=== PATIENT | female | born 1955 | race American Indian/Alaskan Native ===

== ENCOUNTER 2018-09-26 22:56 | Emergency (ER) | payer SELFPAY ==
[2018-09-26 23:33] LABS: Hematocrit 39.9 % (30.3-42.9); Hemoglobin 13.6 gm/dl (10.1-14.3); Mean Corpuscular HGB Conc 34 % (30-34); Mean Corpuscular Volume 91 fl (79-97); Platelet Count 382 K/mm3 (140-440); Red Blood Count 4.37 M/mm3 (3.65-5.03); Red Cell Distribution Width 13.9 % (13.2-15.2)
[2018-09-26 23:54] LABS: Calcium 9.6 mg/dL (8.4-10.2)
[2018-09-27] MEDS ORDERED: BENADRYL IV ONE (02:19)
[2018-09-27] MEDS ORDERED: REGLAN IV ONE (02:19)
[2018-09-27] MEDS ORDERED: TORADOL IV ONE (02:20)
--- NOTE | 2018-09-27 02:43 | Cat Scan Report ---
CT HEAD/BRAIN WO CON CLINICAL INDICATION: Female, 62 years of age. headache COMPARISON: None TECHNIQUE: Contiguous axial images were obtained from the vertex through the skull base.This CT exam was perform ed using one or more of the following dose reduction techniques: automated exposure control, adjustme nt of the mA and/or kV according to patient size, or use of iterative reconstruction technique. FINDINGS: No acute intracranial hemorrhage, midline shift, or extra-axial fluid collection. Ventricles and cis terns are normal in size and configuration for the patient's age. Roe white differentiation is main tained. Calvarium is grossly intact. Visualized ocular globes are grossly unremarkable. Benign punc hua calcification bilateral basal ganglia. Mild mucosal thickening in the visualized paranasal sinuses. Mastoid air cells are clear. IMPRESSION: No grossly acute intracranial abnormality. This document is electronically signed by Missy Betts DO., September 27 2018 02:40:56 AM ET
[2018-09-27] MEDS ORDERED: IBUPROFEN PO ONE (03:06)
[2018-09-27] MEDS ORDERED: TYLENOL PO ONE (03:06)
--- NOTE | 2018-09-27 03:15 | Emergency Department Report ---
ED General Adult HPI - General Chief complaint: Headache Stated complaint: HEADACHE AND DIZZINESS Time Seen by Provider: 09/27/18 02:18 Source: patient Mode of arrival: Ambulatory Limitations: No Limitations - History of Present Illness Initial comments: Patient is a 62-year-old femalewith past medical history who presents with headache and dizziness that has been going on for the last week. Patient states that her headache is intermittent and comes and goes. She is lately been under a lot of stress in her job the headache is not associated with activity nausea vomiting no meningismus or fever no chills no chest pain or shortness of breath. Patient has no neuro deficits no neck pain. She states that she wants get a head CT to evaluate her. Patient is currently being pain that is a 4 out of 10. Patient does not want any IV medication. Severity scale (0 -10): 0 - Related Data Previous Rx's Medication Instructions Recorded Last Taken Type Acetaminophen 500 mg PO Q6H #30 tablet 09/27/18 Unknown Rx Ibuprofen [Motrin] 400 mg PO Q8H PRN #30 tablet 09/27/18 Unknown Rx Allergies Allergy/AdvReac Type Severity Reaction Status Date / Time No Known Allergies Allergy Unverified 09/26/18 23:07 ED Review of Systems ROS: Stated complaint: HEADACHE AND DIZZINESS Other details as noted in HPI Constitutional: denies: chills, fever Eyes: denies: eye pain, eye discharge, vision change ENT: denies: ear pain, throat pain Respiratory: denies: cough, shortness of breath, wheezing Cardiovascular: denies: chest pain, palpitations Endocrine: no symptoms reported Gastrointestinal: denies: abdominal pain, nausea, diarrhea Genitourinary: denies: urgency, dysuria, discharge Musculoskeletal: denies: back pain, joint swelling, arthralgia Skin: denies: rash, lesions Neurological: headache. denies: weakness, paresthesias Psychiatric: denies: anxiety, depression Hematological/Lymphatic: denies: easy bleeding, easy bruising ED Past Medical Hx - Past Medical History Previous Medical History?: No - Surgical History Past Surgical History?: Yes Additional Surgical History: Left breast lumpectomy - Social History Smoking Status: Never Smoker Substance Use Type: None - Medications Home Medications: Home Medications Medication Instructions Recorded Confirmed Last Taken Type Acetaminophen 500 mg PO Q6H #30 tablet 09/27/18 Unknown Rx Ibuprofen [Motrin] 400 mg PO Q8H PRN #30 tablet 09/27/18 Unknown Rx ED Physical Exam - General Limitations: No Limitations General appearance: alert, in no apparent distress - Head Head exam: Present: atraumatic, normocephalic - Eye Eye exam: Present: normal appearance - ENT ENT exam: Present: mucous membranes moist - Neck Neck exam: Present: normal inspection - Respiratory Respiratory exam: Present: normal lung sounds bilaterally. Absent: respiratory distress - Cardiovascular Cardiovascular Exam: Present: regular rate, normal rhythm. Absent: systolic mu rmur, diastolic murmur, rubs, gallop - GI/Abdominal GI/Abdominal exam: Present: soft, normal bowel sounds - Extremities Exam Extremities exam: Present: normal inspection - Back Exam Back exam: Present: normal inspection - Neurological Exam Neurological exam: Present: alert, oriented X3 - Psychiatric Psychiatric exam: Present: normal affect, normal mood - Skin Skin exam: Present: warm, dry, intact, normal color. Absent: rash ED Course Vital Signs 09/26/18 09/27/18 09/27/18 23:02 00:12 01:01 Temperature 98.2 F 98.3 F Pulse Rate 67 61 Respiratory 18 16 Rate Blood Pressure 155/56 138/65 Blood Pressure 140/65 [Left] O2 Sat by Pulse 98 97 100 Oximetry ED Medical Decision Making - Lab Data Result diagrams: 09/26/18 23:08 09/26/18 23:08 Lab Results 09/26/18 09/26/18 Range/Units 23:08 23:08 WBC 7.3 (4.5-11.0) K/mm3 RBC 4.37 (3.65-5.03) M/mm3 Hgb 13.6 (10.1-14.3) gm/dl Hct 39.9 (30.3-42.9) % MCV 91 (79-97) fl MCH 31 (28-32) pg MCHC 34 (30-34) % RDW 13.9 (13.2-15.2) % Plt Count 382 (140-440) K/mm3 Sodium 141 (137-145) mmol/L Potassium 4.0 (3.6-5.0) mmol/L Chloride 102.4 (98-107) mmol/L Carbon Dioxide 28 (22-30) mmol/L Anion Gap 15 mmol/L BUN 12 (7-17) mg/dL Creatinine 1.0 (0.7-1.2) mg/dL Estimated GFR 56 ml/min BUN/Creatinine Ratio 12 % Glucose 99 (65-100) mg/dL Calcium 9.6 (8.4-10.2) mg/dL - Radiology Data Radiology results: report reviewed, image reviewed CT head: Shows no acute intracranial process. - Medical Decision Making Chief medical diagnosis: Tension headache Differential medical diagnosis: Migraine headache, subdural hemorrhage I will give patient ORAL pain medicine and CT scan of head. Critical care attestation.: If time is entered above; I have spent that time in minutes in the direct care of this critically ill patient, excluding procedure time. ED Disposition Clinical Impression: Tension headache, Dizziness Disposition: DC-01 TO HOME OR SELFCARE Is pt being admited?: No Does the pt Need Aspirin: No Condition: Stable Instructions: Tension Headache (ED) Prescriptions: Acetaminophen 500 mg PO Q6H #30 tablet Ibuprofen [Motrin] 400 mg PO Q8H PRN #30 tablet PRN Reason: Headache Forms: Work/School Release Form(ED)
[2018-09-27 03:37] VITALS: BP 119/57
[2018-09-27 07:56] LABS: Band Neutrophils # (Manual) 0.1 K/mm3; Basophils % (Manual) 0 % (0.0-1.8); Total Cells Counted 100
[2018-09-27 07:57] LABS: RBC Morphology Normal
== END 2018-09-27 03:38 | disposition home or self-care (01) ==
LOC: ED 22:56
DX: G44.201 Tension-type headache, unspecified, intractable (principal); R42 Dizziness and giddiness
CPT/HCPCS: 36415; 70450; 80048; 85007; 85025; J1200; J1885; J2765

== ENCOUNTER 2018-10-17 14:12 | Emergency (ER) | payer SELFPAY ==
--- NOTE | 2018-10-17 14:22 | Emergency Department Report ---
Chief Complaint: Medical Clearance Stated Complaint: LUMP ON (L) BREAST Time Seen by Provider: 10/17/18 14:18 - HPI History of Present Illness: This is a 62 y.o female that presents to the ER with painful bump in left breast. In 1998 patient had cancer to left breast and received radiation and chemotherapy. MSE screening note: Focused history and physical exam performed. Due to findings the following was ordered: US of left breast ED Disposition for MSE Condition: Stable
[2018-10-17 14:24] VITALS: BP 125/71
--- NOTE | 2018-10-17 15:04 | Emergency Department Report ---
Chief Complaint: Medical Clearance Stated Complaint: LUMP ON (L) BREAST Time Seen by Provider: 10/17/18 14:18 - HPI History of Present Illness: This is a 62 y.o female that presents to the ER with painful bump in left breast. In 1998 patient had cancer to left breast and received radiation and chemotherapy no other PMH. Last mammogram 1-2 years ago. Denies discharge, swelling, or recent injury. - Exam Vital Signs: Vital Signs 10/17/18 14:23 Temperature 98.3 F Pulse Rate 71 Respiratory 16 Rate Blood Pressure 125/71 [Right] O2 Sat by Pulse 99 Oximetry Physical Exam: GENERAL: The patient is well looking, in no acute distress. HEENT: Atraumatic and normocephalic. Pupils are equal, round, reactive to light, and accommodation. Extraocular movements are intact. There is no icterus, cyanosis, or pallor of the conjunctivae. Tympanic membranes normal bilaterally. Nasal turbinates are clear without exudates. Sinuses nontender to percussion. Posterior pharynx is erythematous. Uvula midline, no exudates are noted, and tonsils are not enlarged. CHEST: Air entry is adequate bilaterally with no rhonchi, and crackles. BREAST: Palpable mass of left breast at 0100 o'clock near axilla, nontender, nonmobile, no discharge. HEART: Sounds 1 and 2 are heard and are normal. Regular rate and rhythm, no tachycardic, murmurs, gallops, or rubs. ABDOMEN: Soft and nontender. Bowel sounds are present and normal. There is no hepatosplenomegaly. SKIN: Without rash. EXTREMITIES: Without edema, cyanosis, or clubbing. MSE screening note: Focused history and physical exam performed. Due to findings the following was ordered: ED Medical Decision Making - Medical Decision Making Patient was examined by me. Vitals are normal and patient is in no acute distress. There is a palpable mass on left breast at 0100 o'clock near axilla. Referral to [facility] for continued care. Plan discussed with patient to discharge home and importance of follow up with [facility] for mammogram and US. She agree with ER plan. Patient discharged home in stable condition. Follow up with PCP in 2-3 days. ED Disposition for MSE Clinical Impression: Left breast lump Disposition: TO HOME OR SELFCARE Is pt being admited?: No Does the pt Need Aspirin: No Condition: Stable Instructions: Breast Mass (ED) Additional Instructions: Follow up with [facility] for mammogram and US of breast. Referrals: AMANDA PHELPS MD [Primary Care Provider] - 3-5 Days HARVINDER LAWTON MD [Staff Physician] - 3-5 Days Malathi Mccullough [Other] - 3-5 Days Time of Disposition: 15:32
== END 2018-10-17 16:35 | disposition home or self-care (01) ==
LOC: ED 14:12
DX: N63.20 Unspecified lump in the left breast, unspecified quadrant (principal)
CPT/HCPCS: 99282

== ENCOUNTER 2020-09-06 09:57 | Outpatient (CLI) | payer BC, OTHER ==
--- NOTE | 2020-09-06 12:03 | Ultrasound Report ---
LEFT DIGITAL DIAGNOSTIC MAMMOGRAM WITH CAD , 09/06/2020 LEFT LIMITED BREAST ULTRASOUND CLINICAL INFORMATION / INDICATION: The patient reports a lump in the upper outer left breast which sh e states has been increasing in size. She has a history of left breast biopsy with atypical results w hich by report were suspicious for DCIS. TECHNIQUE: Digital left mammographic imaging was performed. Limited ultrasound was performed. This ex amination was interpreted with the benefit of Computer-Aided Detection (CAD) analysis. COMPARISON: Diagnostic mammogram, 11/23/2019. Left breast ultrasound, 11/18/2018 FINDINGS: Breast Density: There are scattered areas of fibroglandular density. MAMMOGRAPHIC FINDINGS: There has been slight interval enlargement of the lobulated mass with indistin ct margins at the 2:00 position posterior depth. This measures 1.9 x 1.4 cm as compared to 1.6 x 0.9 cm. This mass now contains 2 biopsy clips. ULTRASOUND FINDINGS: Targeted ultrasound evaluation was performed of the area of interest. Sonograp hic evaluation of the upper outer left breast at the 2:00 position 5 cm from the nipple in the patien t's area of palpable concern demonstrates an oval wider than tall mixed cystic and solid mass measuri ng 2.2 x 0.7 cm. There is no significant associated vascularity. This has increased in size from the prior ultrasound where it measured 1.3 x 0.7 cm. IMPRESSION: 1. Interval increase in size of mixed cystic and solid mass in the upper outer left breast as describ ed. By report this area has been previously biopsied with atypical results. Because of its increase i n size, consideration for re-biopsy or surgical excision is recommended. Follow up recommendation: Surgical consult BI-RADS Category 4: Suspicious for Malignancy. A "normal" or negative report should not discourage follow up or biopsy of a clinically significant f inding. A written summary of these findings will be mailed to the patient. The patient will be entered into a mammography reporting system which will generate a reminder letter for the patient's next appointmen t at the appropriate interval. According to the [employer], yearly mammograms are recommended starting at age 40 and continuing as long as a woman is in good health. Breast MRI is recommended for women with an antione roximately 20-25% or greater lifetime risk of breast cancer, including women with a strong family his tory of breast or ovarian cancer and women who have been treated for Hodgkin's disease. Signer Name: Kristyn Bailey MD Signed: 09/06/2020 11:58 AM Workstation Name: [id number]
== END 2020-09-06 09:58 | disposition home or self-care (01) ==
LOC: SPVWC 09:57
PROVIDERS: ATTEND Surgery
DX: N63.21 Unspecified lump in the left breast, upper outer quadrant (principal); R92.8 Other abnormal and inconclusive findings on diagnostic imaging of breast

== ENCOUNTER 2020-10-11 10:25 | Outpatient (CLI) | payer OTHER ==
--- NOTE | 2020-10-11 16:09 | Mammography Report ---
DIGITAL DIAGNOSTIC MAMMOGRAM WITH CAD CONVENTIONAL, 10/11/2020 CLINICAL INFORMATION / INDICATION: Post ultrasound-guided biopsy of breast and axilla TECHNIQUE: Digital left mammographic imaging was performed. This examination was interpreted with the benefit of Computer-aided Detection analysis. COMPARISON: Left mammogram 09/06/2020 FINDINGS: Breast Density: The breasts are heterogeneously dense, which may obscure small masses. The density in the axillary tail of the far upper outer quadrant posteriorly is less obvious. One of the biopsy clips previously present is still present but the other previous biopsy clip is no longer seen and likely was removed during the biopsy process. The new clip for the biopsy today is noted wit hin the density. I cannot visualize the clip from the axillary biopsy was placed directly into the sm all node. IMPRESSION: Appropriate clip placement for left breast biopsy Follow up recommendation: Per biopsy results Post biopsy imaging. A "normal" or negative report should not discourage follow up or biopsy of a clinically significant f inding. A written summary of these findings will be mailed to the patient. The patient will be entered into a mammography reporting system which will generate a reminder letter for the patient's next appointmen t at the appropriate interval. According to the [employer], yearly mammograms are recommended starting at age 40 and continuing as long as a woman is in good health. Breast MRI is recommended for women with an antione roximately 20-25% or greater lifetime risk of breast cancer, including women with a strong family his tory of breast or ovarian cancer and women who have been treated for Hodgkin's disease. Signer Name: Espinoza Eason MD Signed: 10/11/2020 4:05 PM Workstation Name: [id number]
--- NOTE | 2020-10-11 17:19 | Ultrasound Report ---
ULTRASOUND-GUIDED LEFT BREAST BIOPSY INDICATION: Increasing complex mass, previously biopsied, remote history of malignancy at this site COMPARISON: Left breast ultrasound 09/06/2020 CONSENT: Procedure was discussed at length in advance with the patient. Possible risks and benefits w ere discussed including the possibility of bleeding. Postbiopsy care was discussed. Opportunity for q uestions was provided. Patient is not on anticoagulant therapy and reports no pertinent allergies. PROCEDURE: Timeout was performed. The mixed cystic and solid mass in the upper outer posterior left b reast at 2:00 was targeted sonographically. Using aseptic technique and under local anesthesia, with real-time sonographic guidance, the area of interest was biopsied. Multiple specimens were obtained w ith a 12-gauge Celero biopsy device and sent to pathology for analysis. A metallic clip was placed at the end of the procedure. Site was secured and the patient was sent for post biopsy mammogram. Aram nt tolerated the procedure well and left the department in good condition. IMPRESSION: Successful ultrasound-guided left breast biopsy ULTRASOUND-GUIDED BIOPSY OF A LEFT AXILLARY LYMPH NODE INDICATION: Previous history of malignancy left upper outer quadrant, enlarging complex nodule, outsi de ultrasound indicating abnormal axillary lymph node CONSENT: Procedure was discussed as part of the procedure above. PROCEDURE: Timeout was performed. A mildly abnormal lymph node was seen with mild cortical thickening though with a moderate fatty hilum in the lower left axilla. More superior nodes in the left axilla showed thin cortices. Call local anesthesia was administered under sonographic guidance. Under dir ect sonographic guidance biopsy of the abnormal node was performed using an 18-gauge achieve biopsy. A clip was left within the node at the end of the procedure. Tissue was placed in formalin and sent f or pathology analysis. Patient tolerated the procedure well with no obvious complication. IMPRESSION: Successful left axillary lymph node biopsy Signer Name: Espinoza Eason MD Signed: 10/11/2020 5:14 PM Workstation Name: [id number]
--- NOTE | 2020-10-13 10:45 | Ultrasound Report ---
See combined report. Signer Name: Espinoza Eason MD Signed: 10/13/2020 10:41 AM Workstation Name: [id number]
== END 2020-10-11 10:26 | disposition home or self-care (01) ==
LOC: SPVWC 10:25
PROVIDERS: ATTEND Surgery
DX: N63.21 Unspecified lump in the left breast, upper outer quadrant (principal); R92.2 Inconclusive mammogram; I89.8 Other specified noninfective disorders of lymphatic vessels and lymph nodes; Z85.3 Personal history of malignant neoplasm of breast; Z87.891 Personal history of nicotine dependence; Z79.899 Other long term (current) drug therapy; Z72.89 Other problems related to lifestyle; Z98.890 Other specified postprocedural states
CPT/HCPCS: 38505; 76942; 88305

== ENCOUNTER 2020-11-10 12:18 | Outpatient (CLI) | payer OTHER ==
--- NOTE | 2020-11-10 13:08 | Mammography Report ---
DIGITAL SCREENING MAMMOGRAM WITH CAD, 11/10/2020 CLINICAL INFORMATION / INDICATION: Routine screening on right, recent left breast biopsy with atypia TECHNIQUE: Digital right 2D mammography was obtained in the craniocaudal and mediolateral oblique pr ojections. This examination was interpreted with the benefit of Computer-Aided Detection analysis. COMPARISON: 11/23/2019 FINDINGS: Breast Density: The breasts are heterogeneously dense, which may obscure small masses. No dominant mass, suspicious calcifications, or architectural distortion in the right breast. IMPRESSION: No mammographic evidence of malignancy on right. Follow up recommendation: No action needed on right BI-RADS Category 1: Negative. A "normal" or negative report should not discourage follow up or biopsy of a clinically significant f inding. A written summary of these findings will be mailed to the patient. The patient will be entered into a mammography reporting system which will generate a reminder letter for the patient's next appointmen t at the appropriate interval. The [employer] recommends yearly mammograms starting at age 40 and continuing as l quinten as a woman is in good health. Breast MRI is recommended for women with an approximate 20-25% or greater lifetime risk of breast cancer, including women with a strong family history of breast or ova connor cancer or who have been treated for Hodgkin's disease. Signer Name: Espinoza Eason MD Signed: 11/10/2020 1:04 PM Workstation Name: [id number]
== END 2020-11-10 12:19 | disposition home or self-care (01) ==
LOC: SPVWC 12:18
PROVIDERS: ATTEND Surgery
DX: R92.8 Other abnormal and inconclusive findings on diagnostic imaging of breast (principal); Z85.3 Personal history of malignant neoplasm of breast

== ENCOUNTER 2020-11-28 06:10 | Day surgery (SDC) | payer OTHER ==
[~2020-11-28 06:10] MED LIST: ACETAMINOPHEN 500 MG TAB PO SCH; GABAPENTIN 300 MG CAP PO NR; LACTATED RINGERS 1,000 ML IV SCH; MIDAZOLAM 2 MG/2 ML INJ IV NR; ceFAZolin/STERILE WATER 2 GM/20 ML SYRINGE IV NR
[2020-11-28] MEDS ORDERED: BACTERIOSTATIC SODIUM CHLORIDE 0.9% 30 ML VIAL INFILTRATI ONE (06:35)
[2020-11-28] MEDS ORDERED: propofoL 200 MG/20 ML VIAL IV ONE (07:07)
[2020-11-28] MEDS ORDERED: fentaNYL 100 MCG/2 ML INJ ONE (07:07)
[2020-11-28] MEDS ORDERED: ONDANSETRON 4 MG/2 ML INJ ONE (07:08)
[2020-11-28] MEDS ORDERED: LIDOCAINE PF 100 MG/5 ML (CARDIAC SYRINGE) IV ONE (07:08)
[2020-11-28] MEDS ORDERED: BUPIVACAINE/PF (0.25%) 2.5 MG/ML 30 ML VIAL INFILTRATI ONE ×2 (07:21→08:08)
[2020-11-28] MEDS ORDERED: LIDOCAINE (1%) 10 MG/1 ML VIAL 20 ML MDV ONE (07:21)
[2020-11-28] MEDS ORDERED: ONDANSETRON 4 MG/2 ML INJ IV PRN (07:29)
[2020-11-28] MEDS ORDERED: HYDROcodone/ACETAMINOPHEN 5-325 MG TAB PO PRN (07:29)
[2020-11-28] MEDS ORDERED: HYDROmorphone 1 MG/1 ML INJ IV PRN (07:29)
--- NOTE | 2020-11-28 07:29 | Anesthesia Consultation ---
Anesthesia Consult and Med Hx Date of service: 11/28/20 - Airway Anesthetic Teeth Evaluation: Poor ROM Head & Neck: Adequate Mental/Hyoid Distance: Adequate Mallampati Class: Class III Intubation Access Assessment: Possibly Difficult - Pre-Operative Health Status ASA Pre-Surgery Classification: ASA2 Proposed Anesthetic Plan: General - Pulmonary Hx Smoking: Yes (QUIT 1998) Hx Respiratory Symptoms: No - Cardiovascular System Hx Hypertension: No Hx Heart Attack/AMI: No Hx Percutaneous Transluminal Coronary Angioplasty (PTCA): No - Central Nervous System CVA: No - Endocrine Hx Renal Disease: No Hx Liver Disease: No Hx Insulin Dependent Diabetes: No Hx Non-Insulin Dependent Diabetes: No Hx Thyroid Disease: No - Other Systems Hx Cancer: Yes (remote hx breast ca; no recent chemo) - Additional Comments Anesthesia Medical History Comments: No hx anesthetic complications.
--- NOTE | 2020-11-28 07:29 | Anesthesia Day of Surgery ---
Anesthesia Day of Surgery - Day of Surgery Patient Examined: Yes Patient H&P Reviewed: Yes Patient is NPO: Yes
[2020-11-28] MEDS ORDERED: LIDOCAINE (1%) 10 MG/1 ML VIAL 20 ML MDV INFILTRATI ONE (08:08)
[2020-11-28] MEDS ORDERED: WATER FOR IRRIG STERILE 1,500 ML BOTTLE IR ONE (08:09)
[2020-11-28] MEDS ORDERED: BACITRACIN ZINC OINT 28.4 GM TP ONE (08:33)
--- NOTE | 2020-11-28 08:48 | Operative Report ---
Operative Report Operative Report: Operative Report: November 28, 2020 Preoperative diagnosis: Left breast mass of the upper outer quadrant Postoperative diagnosis: Same Procedure:Left lumpectomy of upper outer quadrant Surgeon: Jane Lang MD Pressroom Supervisor: Germán Escobar MD Anesthesia: General Findings: Left breast mass at the 2:00 position 7 cm FN, radiograph specimen with clip present Complications: None EBL: Minimal Disposition: PACU in good condition Indications for operative procedure: This is a 65-year-old lady with a personal history of left breast cancer and current palpable left breast mass of the upper outer quadrant at the 2:00 position 7 cm FN. Recent biopsy findings of atypia and at least suspicious for DCIS. Patient understands if malignancy is found on final pathology, additional surgery may be indicated. She wished to proceed with the above procedure. Patient's prior history of left breast cancer diagnosed in 1998 and she underwent a lumpectomy with SLNB and did not complete radiation therapy, patient does not think she personally had breast cancer. Procedure in detail: Patient was taken to the operating room and was laid supine. Gen. anesthesia was administered. Left breast and axilla were prepped and draped in the normal sterile operative fashion. Timeout was performed. Ultrasound was used as well identification of known breast mass at the 2:00 position 7-8 cm FN, adjacent to prior lumpectomy incision. Attention was then taken towards the left breast. Ultrasound was used as well. A periareolar breast incision was made around 2:00 position with a 15 blade knife and dissection taken down to subcutaneous tissues. Palpable left breast mass was mobile.Then proceeded raising of the lateral flap with dissection taken past the area of concern and down posteriorly to the pectoralis muscle followed by raising of the superior, inferior and medial flaps with dissection taken past the area of concern and down posteriorly to the pectoralis muscle. The mass was removed posteriorly from the pectoralis muscle. Specimen sent to pathology with clip present and then to pathology. Hemostasis was obtained with the Bovie cautery. No other additional palpable breast masses were present and no other lesions seen on ultrasound. The breast cavity was anesthetized with 1% lidocaine mixed with quarter percent Marcaine. The breast cavity was appropriately irrigated and suctioned. Hemostasis was noted. Deep breast tissue were approximated and closed using interrupted 3-0 Vicryl and the subcutaneous tissues approximated and closed using interrupted 3-0 Vicryl followed by closing of the skin with a running 4-0 Monocryl and dermabond. The patient tolerated surgery very well and she was awaken from anesthesia without any complication and transported to PACU in good condition.
--- NOTE | 2020-11-28 08:54 | Short Stay Summary ---
Short Stay Documentation Date of service: 11/28/20 - History H&P: obtained from office - Allergies and Medications Current Medications: Allergies No Known Allergies Allergy (Verified 11/22/20 16:22) Home Medications Medication Instructions Recorded Confirmed Last Taken Type Cod Liver Oil 1 each PO DAILY 01/04/20 11/22/20 11/25/20 History Multivit-Min/FA/Lycopen/Lutein 1 each PO DAILY 01/04/20 11/22/20 11/25/20 History [Centrum Silver Tablet] Active Medications Acetaminophen (Acetaminophen 500 Mg Tab) 1,000 mg PO PREOP JAVIER Stop: 11/28/20 23:59 Last Admin: 11/28/20 07:02 Dose: 1,000 mg Documented by: Hydrocodone Bitart/Acetaminophen (Hydrocodone/Acetaminophen 5-325 Mg Tab) 2 each PO ONCE PRN PRN Reason: Pain, Moderate (4-6) Stop: 11/28/20 20:00 Cefazolin Sodium (Cefazolin/Sterile Water 2 Gm/20 Ml Syringe) 2 gm IV PREOP NR Stop: 11/28/20 23:59 Gabapentin (Gabapentin 300 Mg Cap) 300 mg PO PREOP NR Stop: 11/28/20 23:59 Last Admin: 11/28/20 07:02 Dose: 300 mg Documented by: Hydromorphone HCl (Hydromorphone 1 Mg/1 Ml Inj) 0.5 mg IV Q10MIN PRN PRN Reason: Pain , Severe (7-10) Stop: 11/28/20 23:00 Lactated Ringer's (Lactated Ringers) 1,000 mls @ 100 mls/hr IV DIRECT JAVIER Stop: 11/28/20 23:59 Last Admin: 11/28/20 06:55 Dose: 100 mls/hr Documented by: Midazolam HCl (Midazolam 2 Mg/2 Ml Inj) 2 mg IV PREOP NR Stop: 11/28/20 23:59 Last Admin: 11/28/20 07:22 Dose: 2 mg Documented by: Ondansetron HCl (Ondansetron 4 Mg/2 Ml Inj) 4 mg IV ONCE PRN PRN Reason: Nausea And Vomiting Stop: 11/28/20 20:00 - Brief post op/procedure progress note Date of procedure: 11/28/20 Pre-op diagnosis: Left breast mass upper outer quadrant Post-op diagnosis: same Procedure: Left lumpectomy upper outer quadrant Anesthesia: GETA Findings: Left breast mass and clip present within radiograph specimen Surgeon: HARVINDER LAWTON Estimated blood loss: minimal Pathology: list Specimen disposition: to lab Condition: stable - Disposition Condition at discharge: Good Disposition: DC-01 TO HOME OR SELFCARE Short Stay Discharge Plan Activity: other (no heavy lifting) Diet: regular Wound: keep clean and dry (wear breast binder; apply bacitracin twice daily; may shower in 48 hours; no baths, pools or lakes) Follow up with: HARVINDER LAWTON MD [Staff Physician] - 7 Days Forms: [facility]patient [facility] DC Inst. Prescriptions: Ibuprofen [Motrin 800 MG tab] 800 mg PO Q8HR PRN #12 tablet PRN Reason: Pain , Severe (7-10)
[2020-11-28 09:50] VITALS: BP 124/72
--- NOTE | 2020-11-28 10:41 | Post Anesthesia Evaluation ---
- Post Anesthesia Evaluation Patient Participated: Yes Airway Patent: Yes Stable Respiratory Function: Yes Nausea/Vomiting: No Temp > 96.8F: Yes Pain Manageable: Yes Adequeate Hydration: Yes Anesthesia Complications: No
--- NOTE | 2020-11-29 09:11 | Mammography Report ---
LEFT BREAST SPECIMEN RADIOGRAPH INDICATION / CLINICAL INFORMATION: Post excisional biopsy. COMPARISON: Left breast mammogram 10/11/20. FINDINGS: The targeted focal asymmetric density and associated biopsy clips are contained within the submitted breast specimen. Signer Name: Bhupendra Escalante MD Signed: 11/29/2020 8:54 AM Workstation Name: [id number]
== END 2020-11-28 10:15 | disposition home or self-care (01) ==
LOC: OR 06:10
PROVIDERS: ATTEND Surgery
DX: N63.21 Unspecified lump in the left breast, upper outer quadrant (principal); Z20.822 Contact with and (suspected) exposure to COVID-19; D05.12 Intraductal carcinoma in situ of left breast; E78.00 Pure hypercholesterolemia, unspecified; Z17.0 Estrogen receptor positive status [ER+]; Z79.899 Other long term (current) drug therapy; Z98.890 Other specified postprocedural states; Z87.891 Personal history of nicotine dependence
CPT/HCPCS: 19301; 76098; 88307; 88341; 88342; J0690; J1170; J2001; J2250; J2405; J2704; J3010; J7120; U0003

== ENCOUNTER 2021-04-05 08:37 | Outpatient (CLI) | payer OTHER ==
--- NOTE | 2021-04-05 10:57 | Mammography Report ---
DEXA BONE DENSITY SCAN INDICATION: ON AROMATASE THERAPY Z79.811. COMPARISON: None available. LUMBAR SPINE (L1-L4): Bone mineral density (BMD) is 0.886 g/cm2. T-score is -2.4 (standard deviations of Young Adult mean). Z-score is -0.5 (standard deviations of Age Matched mean). LEFT FEMORAL NECK: Bone mineral density (BMD) is 0.690 g/cm2. T-score is -1.8 (standard deviations of Young Adult mean). Z-score is -0.6 (standard deviations of Age Matched mean). IMPRESSION: 1. WHO Classification: Osteopenia. Fracture Risk: Increased. Signer Name: Francisco Martin MD Signed: 04/05/2021 10:52 AM Workstation Name: [id number]
== END 2021-04-05 08:38 | disposition home or self-care (01) ==
LOC: SPVWC 08:37
PROVIDERS: ATTEND Internal Medicine Hematology & Oncology
DX: M85.88 Other specified disorders of bone density and structure, other site (principal); Z79.811 Long term (current) use of aromatase inhibitors
CPT/HCPCS: 77080